=== PATIENT | female | born 2000 | race Hispanic/Latino ===

== ENCOUNTER 2018-02-05 16:18 | Inpatient (IN) | payer OTHER ==
[2018-02-05] MEDS ORDERED: MEPERIDINE HCL 25 MG/0.5 ML IV PRN (16:45)
[2018-02-05] MEDS ORDERED: Ringers Lactate 1,000 ML IV PRN (16:45)
[2018-02-05] MEDS ORDERED: BUTORPHANOL 1 MG/ML INJ IV PRN (16:45)
[2018-02-05] MEDS ORDERED: METHYLERGONOVINE 0.2MG/ML AMP IM PRN (16:45)
[2018-02-05] MEDS ORDERED: PROMETHAZINE 25 MG/ML VIAL IM PRN ×2 (16:45)
[2018-02-05] MEDS ORDERED: CARBOPROST TROME 250 MCG/ML IM PRN (16:45)
[2018-02-05] MEDS ORDERED: Ringers Lactate 1,000 ML IV SCH (17:00)
[2018-02-05] MEDS ORDERED: OXYTOCIN/LR 20 UNIT/1,000 ML BAG IV SCH (17:00)
[2018-02-05 17:05] LABS: RPR Titer ND
[2018-02-05 17:08] LABS: Urine Appearance CLOUDY; Urine Bilirubin NEGATIVE (NEG); Urine Blood NEGATIVE (NEG); Urine Color YELLOW; Urine Glucose TRACE (NEG); Urine Protein 1+ (NEG); Urine Specific Gravity >=1.030 (1.005-1.030); Urine Urobilinogen 0.2 mg/dL (0.2-1.0)
[2018-02-05 17:10] LABS: Urine Microscopic Reflex ORDER UMIC
[2018-02-05 17:17] LABS: Absolute Monocytes 0.8 K/uL (0.1-1.3); Absolute Neutrophil 7.9 K/uL (1.8-8.0); Basophils % 0.2 % (0-1.3); Eosinophils % 0.5 % (0-4.4); Hematocrit 33.4 % (36.0-45.0); Lymphocytes % 18.4 % (15.3-44.8); MCH 28.2 pg (27.0-35.0); MCV 81.9 fL (80-100); MPV 8.9 fL (7.6-11.3); RBC Red Blood Cell Count 4.08 M/uL (3.86-4.86)
[2018-02-05 17:20] VITALS: BMI 34.3
[2018-02-05 17:24] LABS: Calcium Oxalate Crystals- Ur FEW (NONE SEEN); Urine Bacteria <20 /HPF (<20); Urine Culture Reflex Order REFLEXED; Urine Mucus 1+ /HPF (NONE SEEN); Urine RBC <5 /HPF (NONE SEEN)
[2018-02-05] MEDS ORDERED: miSOPROStol 100 MCG TAB ONE (18:23)
[2018-02-05] MEDS ORDERED: miSOPROStol 100 MCG TAB VAG SCH (18:30)
[2018-02-05] MEDS ORDERED: ZOLPIDEM TARTRATE 10 MG TABLET PO ONE (21:00)
--- NOTE | 2018-02-05 23:07 | PREOPHP ---
Date of Admission: 02/05/2018 A 17-year-old primigravida, 39 weeks 4 days, wants induction. Pros and cons of Cytotec thoroughly di scussed including hyperstimulation. The patient is 1 possibly 1.5 cm vertex, -1 station, 50% effaced . Cervix soft. Baby looks excellent on the monitor. She is Rh positive, immune to Rubella. Negati ve beta-strep screen. Cytotec 25 mcg fragment placed high into the vagina behind the posterior lip o f the cervix. We will apply another Cytotec in 6 hours, and then if needed, the third one, then wait 5 hours, and begin oxytocin. If rupture of membranes occurs, we will stop with Cytotec and start ox ytocin after a reasonable interval. Full labor and delivery talk given to the patient and significan t other. CHARLEY/LUISITO Voice ID: [id number]
[2018-02-05 23:43] LABS: RPR (Rapid Plasma Reagin) NON-REACT (NON-REACT)
--- NOTE | 2018-02-06 11:51 | PN ---
Subjective: Renea Sherwood had a third Cytotec dose at 6:30 a.m. this morning. The patient states at around 4 a.m. she began notice significant uterine contractions. The patient is now 1.5 cm, 50-60 % effaced. Cervix very soft and baby most importantly has descended well and the pelvis is a -1 stat ion. Rupture of membranes, clear fluid. FHTs normal, reactive. Anticipate more rapid progress. If she is not in good labor by lunchtime, we will start oxytocin, but at this point the patient is renetta ng good progress just with the Cytotec. Full labor talk given again. CHARLEY/LUISITO Voice ID: [id number] Report ID: [id number]
--- NOTE | 2018-02-06 12:06 | PN ---
The patient has now 4 milliunits of Pitocin, sabrina regularly. She is 2 cm, 70% effaced, vertex , still at -1 station. Baby looks good. She has had 1 dose of Stadol. Encouraged to get in the [facility] saida chair, change positions. We will check her again in an hour and see what kind of progress we ar e making and we will continue to increase the Pitocin. CHARLEY/LUISITO Voice ID: [id number] Report ID: [id number]
[2018-02-06] MEDS ORDERED: FENTANYL CITR 100 MCG/2 ML ONE (15:00)
[2018-02-06] MEDS ORDERED: ROPIVACAINE HCL 100 ML IV ONE (15:01)
[2018-02-06] MEDS ORDERED: ROPIVACAINE HCL 0 ML ONE (15:01)
[2018-02-06] MEDS ORDERED: METHYLERGONOVINE 0.2MG/ML AMP IM ONE (19:04)
[2018-02-06] MEDS ORDERED: CARBOPROST TROME 250 MCG/ML IM ONE (19:04)
[2018-02-06] MEDS ORDERED: ACETAMINOPHEN 500 MG TAB PO PRN (21:07)
[2018-02-06] MEDS ORDERED: DOCUSATE NA/SENNA CONC 1 TAB PO PRN (21:07)
[2018-02-06] MEDS ORDERED: Oxycodone HCl/Acetaminophen 1 TAB TAB PO PRN ×2 (21:07)
[2018-02-06] MEDS ORDERED: DIPHENHYDRAMINE 25 MG TAB/CAP PO PRN (21:07)
[2018-02-06] MEDS ORDERED: BISACODYL 10 MG RECTAL SUPP RECT PRN (21:07)
[2018-02-06] MEDS ORDERED: OXYTOCIN/LR 20 UNIT/1,000 ML BAG IV SCH (22:00)
--- NOTE | 2018-02-06 23:00 | PN ---
Subjective: The patient is completely dilated; +1, +2 station. She is going to begin pushing at thi s point. We cut the epidural maintenance dose from 8 to 6. Anticipate that she continues to push we ll as she is doing at this point. We should deliver within the next half hour or so. CHARLEY/LUISITO Voice ID: [id number] Report ID: [id number]
[2018-02-06] MEDS: IBUPROFEN 200 MG TAB PO PRN (23:30)
--- NOTE | 2018-02-07 03:07 | OP ---
Surgeon: Rafy Gutierrez MD Indication And Procedure: A 17-year-old, primigravida, 39 weeks 4 days, had Cytotec inserted 3 times starting yesterday afternoon. It worked very well. This morning, she was 1.5 cm, 60% effaced, vert ex very low at -1 station, rupture of membranes, clear fluid. The patient went to a more active labo r pattern. Pitocin was eventually started and increased during the day. The patient initially recei thanh Stadol IV, then epidural anesthesia at approximately 4 cm. Went to complete after achieving 5 cm , second stage of approximately 45 minutes. Spontaneous vaginal delivery of a 7-pound female, Apgars 9 and 9, small first-degree laceration on the right side of the introitus. Two udcmhx-xh-hcwuv stit ches with 2-0 chromic. Schultze delivery of the placenta, which inspected and noted to be intact and normal. Less than 300 cc blood loss. Nuchal cord x2, very loosely. The patient is Rh positive, im mune to Rubella. Negative beta-strep screen. Final Diagnoses: Term intrauterine at 39 weeks 4 days, Cytotec followed by Pitocin inducti on, vaginal delivery, epidural anesthesia, nuchal cord x2. CHARLEY/LUISITO Voice ID: [id number] Report ID: [id number]
--- NOTE | 2018-02-07 11:49 | DS ---
Hospital Course: A 17-year-old, primigravida, 39 weeks 4 days, had Cytotec inserted 3 times, went in to a more active labor. Later, Pitocin augmentation was added. First stage of labor. The patient r eceived Stadol at approximately epidural anesthesia, which gave good effect during remaind er of labor and delivery. Second stage of about 45 minutes. Spontaneous vaginal delivery of a 7-kvng nd female, Apgars 9 and 9. Very small first-degree laceration, more of a mucosal tear on the right s nawaf of the introitus, 2 stitches 2-0 chromic under local infiltration. Schultze delivery of the plac enta, which was inspected and noted to be intact and normal. Less than 300 cc blood loss. Baby is n oted to have a nuchal cord x2 very loosely. Rh positive. Immune to Rubella. Negative beta strep sc reen. afebrile, ambulating and voiding. No post epidural problems. Will be dismissed ei ther later today or tomorrow morning to report back to my office in 6 weeks for followup, to report a ny temperature elevation of 100 degrees or greater, severe pain, heavy bleeding, or any other type of abnormalities. Dismissed with tramadol, although she knows to take Motrin instead. No p ost epidural problems. Final Diagnoses: Term intrauterine 39 weeks and 5 days at the time of delivery, Cytotec in duction, nuchal cord x2, epidural anesthesia. CHARLEY/LUISITO Voice ID: [id number] Report ID: [id number]
[2018-02-07] MEDS: IBUPROFEN 200 MG TAB PO PRN (14:26)
[2018-02-08] MEDS ORDERED: MAGNESIUM HYDROXIDE 8% 30 ML PO ONE (07:06)
--- NOTE | 2018-02-08 07:35 | PN ---
We went over dismissal instructions again today. The patient is constipated. We will give her 2 oun dion of milk of magnesia this morning. Constipation lecture given. She is to see me in 6 weeks for alexa ac. Knows that if she has any problems, however, to come back sooner, fever, severe pain, heavy bleeding, or any other type of abnormalities. She has had her Tdap immunization during the pregnanc y. Full discussion about dismissal options and instructions again given. CHARLEY/LUISITO Voice ID: [id number] Report ID: [id number]
[2018-02-08 07:36] VITALS: BP 125/73; TEMP 98.2
[2018-02-09 04:06] LABS: HBsAG Nonreactive (Nonreactive)
== END 2018-02-08 08:25 | disposition home or self-care (01) | DRG 774 ==
LOC: 2ND-WC 16:18
PROVIDERS: ADMIT Specialist; ATTEND Specialist
PROC: 3E0P7VZ Introduction of Hormone into Female Reproductive, Via Natural or Artificial Opening (ICD-10-PCS; 2018-02-05)
PROC: 10E0XZZ Delivery of Products of Conception, External Approach (ICD-10-PCS; principal; 2018-02-06)
PROC: 0HQ9XZZ Repair Perineum Skin, External Approach (ICD-10-PCS; 2018-02-06)
PROC: 10907ZC Drainage of Amniotic Fluid, Therapeutic from Products of Conception, Via Natural or Artificial Opening (ICD-10-PCS; 2018-02-06)
DX: O70.0 First degree perineal laceration during delivery (principal); O90.89 Other complications of the puerperium, not elsewhere classified; K59.00 Constipation, unspecified; O69.81X0 Labor and delivery complicated by cord around neck, without compression, not applicable or unspecified; Z3A.39 39 weeks gestation of pregnancy; Z37.0 Single live birth
CPT/HCPCS: 36415; 81003; 81015; 85025; 86592; 86901; 87077; 87086; 87088; 87186; 87340; J0595; J2210; J2550; J2590; J2795; J3010

== ENCOUNTER 2020-02-03 08:46 | Emergency (ER) | payer OTHER ==
--- OUTSIDE RECORDS SUMMARY | 2020-02-03 09:37 | XMS REPORT | Continuity of Care Document ---
:2000 Author Organization [facility] t Address [address] [place] [address] [address]. [address] [place] [address] Care Team Providers Name Role Phone Unavailable Unavailable Unavailable Problems This patient has no known problems. Allergies, Adverse Reactions, Alerts This patient has no known allergies or adverse reactions. Medications This patient has no known medications. Procedures This patient has no known procedures. Results This patient has no known results.
--- NOTE | 2020-02-03 09:41 | EDPHYS ---
Physician Documentation [facility] Name: Renea Sherwood Age: 19 yrs Sex: Female : 2000 Arrival Date: 02/03/2020 Time: 09:03 Bed 19 Private MD: ED Physician Solo Ponce HPI: 02/02 09:37 This 19 yrs old Female presents to ER via Ambulatory with complaints of erum POSSIBLE STREP THROAT. 09:37 The patient presents with sore throat. The patient describes throat pain as constant, erum dry, raw, scratchy. Onset: The symptoms/episode began/occurred 2 day(s) ago. Severity of symptoms: At their worst the symptoms were mild, in the emergency department the symptoms are unchanged. Modifying factors: The symptoms are alleviated by fluids, the symptoms are aggravated by foods, swallowing, Patient's oral intake status: good. Associated signs and symptoms: Pertinent positives: fever. The patient has not experienced similar symptoms in the past. Historical: - Allergies: :22 No Known Allergies; ss - Home Meds: : None [Active]; ss - PMHx: : None; ss - PSHx: 09:22 None; ss - Immunization history:: Adult Immunizations up to date. - Social history:: Smoking status: Patient denies any tobacco usage or history of. - Family history:: not pertinent. ROS: 09:37 Constitutional: Negative for fever, chills, and weight loss, Eyes: Negative for injury, erum pain, redness, and discharge, Neck: Negative for injury, pain, and swelling, Cardiovascular: Negative for chest pain, palpitations, and edema, Respiratory: Negative for shortness of breath, cough, wheezing, and pleuritic chest pain, Abdomen/GI: Negative for abdominal pain, nausea, vomiting, diarrhea, and constipation, Back: Negative for injury and pain, : Negative for injury, bleeding, discharge, and swelling, MS/Extremity: Negative for injury and deformity, Skin: Negative for injury, rash, and discoloration, Neuro: Negative for headache, weakness, numbness, tingling, and seizure, Psych: Negative for depression, anxiety, suicide ideation, homicidal ideation, and hallucinations, Allergy/Immunology: Negative for hives, rash, and allergies, Endocrine: Negative for neck swelling, polydipsia, polyuria, polyphagia, and marked weight changes, Hematologic/Lymphatic: Negative for swollen nodes, abnormal bleeding, and unusual bruising. 09:37 ENT: Positive for sore throat. Exam: 09:37 Constitutional: This is a well developed, well nourished patient who is awake, alert, erum and in no acute distress. Head/Face: Normocephalic, atraumatic. Eyes: Pupils equal round and reactive to light, extra-ocular motions intact. Lids and lashes normal. Conjunctiva and sclera are non-icteric and not injected. Cornea within normal limits. Periorbital areas with no swelling, redness, or edema. Neck: Trachea midline, no thyromegaly or masses palpated, and no cervical lymphadenopathy. Supple, full range of motion without nuchal rigidity, or vertebral point tenderness. No Meningismus. Chest/axilla: Normal chest wall appearance and motion. Nontender with no deformity. No lesions are appreciated. Cardiovascular: Regular rate and rhythm with a normal S1 and S2. No gallops, murmurs, or rubs. Normal PMI, no JVD. No pulse deficits. Respiratory: Lungs have equal breath sounds bilaterally, clear to auscultation and percussion. No rales, rhonchi or wheezes noted. No increased work of breathing, no retractions or nasal flaring. Abdomen/GI: Soft, non-tender, with normal bowel sounds. No distension or tympany. No guarding or rebound. No evidence of tenderness throughout. Back: No spinal tenderness. No costovertebral tenderness. Full range of motion. Skin: Warm, dry with normal turgor. Normal color with no rashes, no lesions, and no evidence of cellulitis. MS/ Extremity: Pulses equal, no cyanosis. Neurovascular intact. Full, normal range of motion. Neuro: Awake and alert, GCS 15, oriented to person, place, time, and situation. Cranial nerves II-XII grossly intact. Motor strength 5/5 in all extremities. Sensory grossly intact. Cerebellar exam normal. Normal gait. Psych: Awake, alert, with orientation to person, place and time. Behavior, mood, and affect are within normal limits. 09:37 ENT: Posterior pharynx: Tonsils: are normal in appearance, with erythema, Uvula: normal, midline, swelling, is not appreciated, that is mild, erythema, that is mild, exudate, is not appreciated, peritonsillar mass, is not appreciated, pooling of secretions, is not appreciated. Vital Signs: 09:22 BP 114 / 74; Pulse 105; Resp 16; Temp 97.1(TE); Pulse Ox 99% on R/A; Weight 70.31 kg; ss Height 5 ft. 3 in. (160.02 cm); Pain 6/10; 09:22 Body Mass Index 27.46 (70.31 kg, 160.02 cm) ss MDM: 09:26 Patient medically screened. [facility] 09:39 Data reviewed: vital signs, nurses notes. [facility] 09:41 Differential diagnosis: Allergic rhinitis, influenza, laryngitis, pharyngitis, erum tonsillitis, upper respiratory infection, uvulitis. Data interpreted: steam box hand: rate is 105 beats/min, rhythm is regular, Pulse oximetry: on room air is 99 %. Counseling: I had a detailed discussion with the patient and/or guardian regarding: the historical points, exam findings, and any diagnostic results supporting the discharge/admit diagnosis, the need for outpatient follow up, for definitive care, a family practitioner. 09:42 ED course: sore throat, exposure, sub fevers, has 15 month old child. [facility] Administered Medications: No medications were administered Disposition: 02/03/20 09:40 Discharged to Home. Impression: Acute pharyngitis. - Condition is Stable. - Discharge Instructions: Pharyngitis, Pharyngitis, Zocw-kh-Auox, Sore Throat, [id number]-[id number]. - Prescriptions for Amoxicillin 875 mg Oral Tablet - take 1 tablet by ORAL route every 12 hours for 10 days; 20 tablet. Denice- D 12 Hour 60-120 mg Oral Tablet Sustained Release 12 hr - take 1 tablet by ORAL route every 12 hours As needed; 20 tablet. - Medication Reconciliation Form, Thank You Letter, Antibiotic Education, Prescription Opioid Use form. - Work release form (02/03/20 10:17). ss - Follow up: Private Physician; When: 2 - 3 days; Reason: Recheck today's complaints, Continuance of care, Re-evaluation by your physician. - Problem is new. - Symptoms have improved. Signatures: Solo Ponce MD MD cha Smirch, Shelby, RN RN ss Corrections: (The following items were deleted from the chart) 10:00 09:40 02/03/2020 09:40 Discharged to Home. Impression: Acute pharyngitis. Condition is ss Stable. Forms are Medication Reconciliation Form, Thank You Letter, Antibiotic Education, Prescription Opioid Use. Follow up: Private Physician; When: 2 - 3 days; Reason: Recheck today's complaints, Continuance of care, Re-evaluation by your physician. Problem is new. Symptoms have improved. erum
--- NOTE | 2020-02-03 09:41 | ER ---
Nurse's Notes [facility] Name: Renea Sherwood Age: 19 yrs Sex: Female : 2000 Arrival Date: 02/03/2020 Time: 09:03 Bed 19 Private MD: Diagnosis: Acute pharyngitis Presentation: 02/02 09:20 Chief complaint: Patient states: "We live with somebody that tested positive for strep ss throat and my throat is killing me." Sore throat began 2 days ago. Denies fever, SOB and/or cough. Coronavirus screen: Patient denies a cough. Patient denies shortness of breath or difficulty breathing. Patient denies measured and/or subjective temperature greater than 100.4F prior to today's visit. Patient denies travel on a cruise ship or to a country the [facility] currently lists as an affected area. Patient denies contact with known and/or suspected case of COVID-19. Proceed with normal triage. Ebola Screen: Patient denies exposure to infectious person. Patient denies travel to an Ebola-affected area in the 21 days before illness onset. Initial Sepsis Screen: Does the patient meet any 2 criteria? No. Patient's initial sepsis screen is negative. Does the patient have a suspected source of infection? No. Patient's initial sepsis screen is negative. Risk Assessment: Do you want to hurt yourself or someone else? Patient reports no desire to harm self or others. Onset of symptoms was February 01, 2020. 09:20 Method Of Arrival: Ambulatory ss 09:20 Acuity: MOSES 4 ss Historical: - Allergies: 09:22 No Known Allergies; ss - Home Meds: 09:22 None [Active]; ss - PMHx: 09:22 None; ss - PSHx: 09:22 None; ss - Immunization history:: Adult Immunizations up to date. - Social history:: Smoking status: Patient denies any tobacco usage or history of. - Family history:: not pertinent. Screenin:00 Abuse screen: Denies threats or abuse. Denies injuries from another. Nutritional ss screening: No deficits noted. Tuberculosis screening: Never had TB. Fall Risk None identified. Assessment: 10:02 General: Appears in no apparent distress. comfortable, Behavior is calm, cooperative, ss Reports fatigue for 12-24 hours, Denies fever, feeling ill, chills. Pain: Complains of pain in throat Pain currently is 6 out of 10 on a pain scale. Quality of pain is described as sore. Neuro: Level of Consciousness is awake, alert, obeys commands, Oriented to person, place, time, situation. Cardiovascular: Capillary refill < 3 seconds is brisk in bilateral fingers. Respiratory: Airway is patent Respiratory effort is even, unlabored, Respiratory pattern is regular, symmetrical. GI: Patient currently denies diarrhea, nausea, vomiting. EENT: Nares are clear Oral mucosa is moist. Throat is clear. Derm: Skin is intact, is healthy with good turgor, Skin is dry, Skin is pink, warm \\T\\ dry. normal. Musculoskeletal: Circulation, motion, and sensation intact. Range of motion: intact in all extremities, Swelling absent. Vital Signs: 09:22 BP 114 / 74; Pulse 105; Resp 16; Temp 97.1(TE); Pulse Ox 99% on R/A; Weight 70.31 kg; Height 5 ft. 3 in. (160.02 cm); Pain 6/10; 09:22 Body Mass Index 27.46 (70.31 kg, 160.02 cm) ED Course: 09:03 Patient arrived in ED. fj1 09:14 Solo Ponce MD is Attending Physician. [facility] 09:22 Triage completed. 09:22 Arm band placed on right wrist. 09:59 Delmis Spain, RN is Primary Nurse. 10:00 Patient has correct armband on for positive identification. Bed in low position. Call ss light in reach. Side rails up X 1. 10:00 No provider procedures requiring assistance completed. Patient did not have IV access ss during this emergency room visit. Administered Medications: No medications were administered Outcome: 09:40 Discharge ordered by . [facility] 10:00 Discharged to home ambulatory. 10:00 Condition: good 10:00 Discharge instructions given to patient, Instructed on discharge instructions, follow up and referral plans. medication usage, Demonstrated understanding of instructions, follow-up care, medications, Prescriptions given X 2. 10:00 Patient left the ED. Signatures: Solo Ponce MD MD cha Smirch, Shelby, RN RN Rubin Dennis fj1
[2020-02-03 10:08] VITALS: BP 114/74; TEMP 97.1; O2SAT 99
== END 2020-02-03 10:00 | disposition home or self-care (01) ==
LOC: ER 08:46
DX: J02.9 Acute pharyngitis, unspecified (principal)
CPT/HCPCS: 99282

== ENCOUNTER 2020-03-20 09:51 | Emergency (ER) | payer SELFPAY ==
--- OUTSIDE RECORDS SUMMARY | 2020-03-20 09:54 | XMS REPORT | Continuity of Care Document ---
:2000 Author Organization [facility] t Address [address] [place] [address] [address]. [address] [place] [address] Care Team Providers Name Role Phone Unavailable Unavailable Unavailable Problems This patient has no known problems. Allergies, Adverse Reactions, Alerts This patient has no known allergies or adverse reactions. Medications This patient has no known medications. Procedures This patient has no known procedures. Results This patient has no known results.
[2020-03-20 10:39] LABS: Urine Blood 2+ (NEG); Urine Glucose NEGATIVE (NEG); Urine Protein 3+ (NEG); Urine pH 7.5 (5.0-7.0)
[2020-03-20] MEDS ORDERED: MORPHINE 4 MG/ML SYR ONE (10:39)
[2020-03-20] MEDS ORDERED: ONDANSETRON 4 MG/2 ML VIAL ONE (10:39)
[2020-03-20] MEDS ORDERED: CEFTRIAXONE/SWI 1gm 1 GM/10 ML SYR ONE (10:40)
[2020-03-20] MEDS ORDERED: NA CHLORIDE 0.9% 1,000 ML ONE (10:40)
[2020-03-20 10:43] LABS: Urine Bacteria >50 /HPF (<20); Urine Culture Reflex Order REFLEXED
[2020-03-20 11:03] LABS: Absolute Lymphocytes (CBC) 1.6 K/uL (0.7-4.9); Basophils % 0.3 % (0-1.3); Hematocrit 38.8 % (36.0-45.0); Lymphocytes % 8.8 % (15.3-44.8); MPV 7.8 fL (7.6-11.3)
[2020-03-20 11:11] LABS: ALT/SGPT 16 U/L (12-78); AST/SGOT 8 U/L (15-37); Albumin 3.8 g/dL (3.4-5.0); Alkaline Phosphatase 79 U/L (45-117); BUN Blood Urea Nitrogen 9 mg/dL (7-18); Bicarbonate 27 mmol/L (21-32); Bilirubin Direct 0.1 mg/dL (0-0.2); Bilirubin Total 0.4 mg/dL (0.2-1.0); Glucose Level 106 mg/dL (74-106); Lipase 55 U/L (73-393); Potassium 3.7 mmol/L (3.5-5.1); Protein, Total 7.7 g/dL (6.4-8.2); Sodium Level 139 mmol/L (136-145)
--- NOTE | 2020-03-20 11:27 | RAD REPORT ---
EXAM DESCRIPTION: CT - Abdomen Pelvis W Contrast - 03/20/2020 10:53 am CLINICAL HISTORY: FLANK PAIN, right-side COMPARISON: No comparisons TECHNIQUE: Biphasic, helical CT imaging of the abdomen and pelvis was performed following 100 ml non -ionic IV contrast. No oral contrast administered. All CT scans are performed using dose optimization technique as appropriate and may include automated exposure control or mA/KV adjustment according to patient size. FINDINGS: No suspicious findings in the lung bases. The liver, spleen, and pancreas show no suspicious findings. Gallbladder and biliary tree are also wi thout suspicious finding. No hydronephrosis present and no obstructing or nonobstructing calculi. No focal diminished enhanceme nt of the right kidney relative to the left. There is subtle edema of the right kidney when compared to the left. Slight thickening and enhancement of the right ureter present. No focal parenchymal mass . Bladder is fully contracted which precludes accurate assessment of cystitis. No bladder calculi pre sent. No adrenal abnormalities. IUD is in place in a normal-sized uterus. No ovarian or uterine suspicious finding. No dilated bowel loops or bowel wall thickening. Cecum is low-lying in the midline pelvis. Appendix i s normal. No free air, free fluid or inflammatory stranding. No mass or bulky lymphadenopathy. Patie nt has a minimal fat only umbilical hernia. No suspicious bony findings. IMPRESSION: Right ureteritis findings are evident. Urinary bladder is too contracted to allow all ac curate assessment of possible cystitis. Right kidney shows subtle edema relative to the left kidney but no focal parenchymal enhancement abno rmality to confirm pyelonephritis.
--- NOTE | 2020-03-20 11:36 | ER ---
Nurse's Notes [facility] Name: Renea Sherwood Age: 19 yrs Sex: Female : 2000 Arrival Date: 03/20/2020 Time: 09:54 Bed 15 Private MD: Diagnosis: Urinary tract infection, site not specified Presentation: 03/20 10:13 Chief complaint: Urinary urgency and frequency x 3 days, right flank and suprapubic hb pain 8/10 since last night. Coronavirus screen: At this time, the client does not indicate any symptoms associated with coronavirus-19. Ebola Screen: No symptoms or risks identified at this time. Initial Sepsis Screen: Does the patient meet any 2 criteria? Systolic BP < 90 mmHg. HR > 90 bpm. Yes Does the patient have a suspected source of infection? No. Patient's initial sepsis screen is negative. Risk Assessment: Do you want to hurt yourself or someone else? Patient reports no desire to harm self or others. Onset of symptoms was March 17, 2020. 10:13 Method Of Arrival: Ambulatory hb 10:13 Acuity: MOSES 2 hb Triage Assessment: 10:15 General: Appears in no apparent distress. uncomfortable, Behavior is calm, cooperative. hb Pain: Pain currently is 8 out of 10 on a pain scale. EENT: No signs and/or symptoms were reported regarding the EENT system. Neuro: Level of Consciousness is awake, alert, obeys commands, Oriented to person, place, time, situation. Cardiovascular: Capillary refill < 3 seconds Patient's skin is warm and dry. Respiratory: Airway is patent Respiratory effort is even, unlabored, Respiratory pattern is regular, symmetrical. GI: No signs and/or symptoms were reported involving the gastrointestinal system. : Reports pain in suprapubic area flank(s), urgency, urinary frequency. Derm: Skin is pink, warm \T\ dry. Musculoskeletal: No deficits noted. 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 - Social history:: Smoking status: Patient denies any tobacco usage or history of. Screenin:17 Abuse screen: Denies threats or abuse. Denies injuries from another. Nutritional hb screening: No deficits noted. Tuberculosis screening: No symptoms or risk factors identified. Fall Risk None identified. Assessment: 10:16 General: SEE TRIAGE ASSESSMENT. hb 11:36 Reassessment: No changes from previously documented assessment. Patient and/or family ll2 updated on plan of care and expected duration. Pain level reassessed. Patient is alert, oriented x 3, equal unlabored respirations, skin warm/dry/pink. Pain: Complains of pain in low back area Pain currently is 4 out of 10 on a pain scale. Vital Signs: 10:13 BP 78 / 58; Pulse 100; Resp 16; Temp 98.2; Pulse Ox 100% on R/A; Weight 68.04 kg; hb Height 5 ft. 3 in. (160.02 cm); Pain 8/10; 10:24 BP 97 / 65; ll1 10:24 Pulse 85; ll1 11:11 BP 103 / 65; Pulse 106; Resp 16; Temp 98.2; Pulse Ox 100% on R/A; ll2 10:13 Body Mass Index 26.57 (68.04 kg, 160.02 cm) hb ED Course: 09:54 Patient arrived in ED. mr 10:08 Mike Sampson, TELEGRAPH REPEATER INSTALLER is PHCP. pm1 10:08 Solo Ponce MD is Attending Physician. pm1 10:13 Angelina Fernandez, ISABELLE is Primary Nurse. ll1 10:15 Triage completed. hb 10:16 Arm band placed on. hb 10:17 Patient has correct armband on for positive identification. Bed in low position. Call light in reach. 10:53 CT Abd/Pelvis - IV Contrast Only In Process Unspecified. EDMS 11:11 Inserted saline lock: 20 gauge in right antecubital area, using aseptic technique. ll2 11:12 Initial lab(s) drawn, by me, sent to lab. ll2 11:53 No provider procedures requiring assistance completed. IV discontinued, intact, hb bleeding controlled, No redness/swelling at site. Administered Medications: 11:09 Drug: Zofran (Ondansetron) 4 mg Route: IVP; Site: right antecubital; ll2 11:37 Follow up: Response: No adverse reaction ll2 11:09 Drug: morphine 4 mg Route: IVP; Site: left antecubital; ll2 11:36 Follow up: Response: No adverse reaction; Pain is decreased; RASS: Alert and Calm (0) ll2 11:09 Drug: Rocephin 1 grams Route: IV; Rate: calculated rate; Site: left antecubital; ll2 11:36 Follow up: Response: No adverse reaction; IV Status: Completed infusion ll2 11:10 Drug: NS 0.9% 1000 ml Route: IV; Rate: 1000 ml; Site: right antecubital; ll2 11:49 Drug: Cipro 500 mg Route: PO; hb Outcome: 11:35 Discharge ordered by MD. pm1 11:53 Discharged to home ambulatory. hb 11:53 Condition: stable 11:53 Discharge instructions given to patient, Instructed on discharge instructions, follow up and referral plans. medication usage, Demonstrated understanding of instructions, follow-up care, medications, Prescriptions given X 3. 11:53 Patient left the ED. hb Addendum: 03/23/2020 08:30 Addendum: Culture Results: Positive urine culture. Bacteria is resistant to, has s s intermediate sensitivity, or is not tested against prescribed antibiotics. Report given to SHALONDA for further evaluation and then to insurance legal assistant for follow up with patient. Phone call Attempt #1 Called and spoke with patient who reports she does not have any symptoms of UTI at this time and is feeling much better. Instructed to prescribe Augmentin 875 PO BID x 7 days # 14 in symptomatic. Pt reports that she is still has yet to follow up with PCP, but still plans to do so and verbalizes understanding importance. Signatures: Dispatcher [employer] VITALYUT Sharmaine Mercado Delmis Perez, ISABELLE WALTON Mike Sampson, LISANDRA TELEGRAPH REPEATER INSTALLER pm1 Tawana Kathleen RN RN Melody Christianson RN RN ll2 Angelina Fernandez RN RN ll1
--- NOTE | 2020-03-20 11:36 | EDPHYS ---
Physician Documentation [facility] Name: Renea Sherwood Age: 19 yrs Sex: Female : 2000 Arrival Date: 03/20/2020 Time: 09:54 Bed 15 Private MD: ED Physician Solo Ponce HPI: 03/20 10:22 This 19 yrs old Female presents to ER via Ambulatory with complaints of pm1 Urinary Problem, Flank Pain. 10:22 The patient presents with pain that is acute. The symptoms are located in the right low pm1 back. Onset: The symptoms/episode began/occurred 2 day(s) ago. Associated signs and symptoms: Pertinent positives: dysuria, Pertinent negatives: chest pain, fever, nausea, numbness, tingling, weakness. Modifying factors: The patient symptoms are alleviated by nothing, the patient symptoms are aggravated by urination. Severity of symptoms: in the emergency department the symptoms are actually worse. The patient has experienced similar episodes in the past, a few times, but today's symptoms are worse, more painful. The patient has not recently seen a physician. 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 - Social history:: Smoking status: Patient denies any tobacco usage or history of. ROS: 10:22 Constitutional: Negative for fever, chills, and weight loss, Cardiovascular: Negative pm1 for chest pain, palpitations, and edema, Respiratory: Negative for shortness of breath, cough, wheezing, and pleuritic chest pain, Abdomen/GI: Negative for abdominal pain, nausea, vomiting, diarrhea, and constipation. 10:22 MS/Extremity: Negative for injury and deformity, Skin: Negative for injury, rash, and discoloration, Neuro: Negative for headache, weakness, numbness, tingling, and seizure. 10:22 Back: Positive for flank pain, on the right. 10:22 : Positive for burning with urination. Exam: 10:22 Constitutional: This is a well developed, well nourished patient who is awake, alert, pm1 and in no acute distress. Head/Face: Normocephalic, atraumatic. Neck: Trachea midline, no thyromegaly or masses palpated, and no cervical lymphadenopathy. Supple, full range of motion without nuchal rigidity, or vertebral point tenderness. No Meningismus. 10:22 Back: No spinal tenderness. No costovertebral tenderness. Full range of motion. Skin: Warm, dry with normal turgor. Normal color with no rashes, no lesions, and no evidence of cellulitis. MS/ Extremity: Pulses equal, no cyanosis. Neurovascular intact. Full, normal range of motion. 10:22 Cardiovascular: Exam negative for acute changes, Rate: normal, Rhythm: regular, Pulses: no pulse deficits are appreciated. 10:22 Respiratory: Exam negative for acute changes, respiratory distress, shortness of breath. 10:22 Abdomen/GI: Exam negative for acute changes, Inspection: abdomen appears normal, Palpation: abdomen is soft and non-tender, in all quadrants. 10:22 Neuro: Exam negative for acute changes, Orientation: is normal, Mentation: is normal, Motor: is normal. Vital Signs: 10:13 BP 78 / 58; Pulse 100; Resp 16; Temp 98.2; Pulse Ox 100% on R/A; Weight 68.04 kg; hb Height 5 ft. 3 in. (160.02 cm); Pain 8/10; 10:24 BP 97 / 65; ll1 10:24 Pulse 85; ll1 11:11 BP 103 / 65; Pulse 106; Resp 16; Temp 98.2; Pulse Ox 100% on R/A; ll2 10:13 Body Mass Index 26.57 (68.04 kg, 160.02 cm) hb MDM: 10:08 Patient medically screened. pm1 11:34 Data reviewed: vital signs. Data interpreted: Pulse oximetry: on room air is 100 %. pm1 Interpretation: normal. 11:35 Counseling: I had a detailed discussion with the patient and/or guardian regarding: the pm1 historical points, exam findings, and any diagnostic results supporting the discharge/admit diagnosis, lab results, radiology results, the need for outpatient follow up, to return to the emergency department if symptoms worsen or persist or if there are any questions or concerns that arise at home. 03/20 10:13 Order name: Basic Metabolic Panel; Complete Time: 11:14 pm1 03/20 10:13 Order name: CBC with Diff pm1 03/20 10:13 Order name: Hepatic Function; Complete Time: 11:14 pm1 03/20 10:13 Order name: Lipase; Complete Time: 11:14 pm1 03/20 10:13 Order name: Urine Microscopic Only; Complete Time: 11:07 pm1 03/20 10:22 Order name: Urine Culture pm1 03/20 10:13 Order name: CT Abd/Pelvis - IV Contrast Only; Complete Time: 11:33 pm1 03/20 10:22 Order name: Urine Culture EDPR 03/20 10:24 Order name: Urine Dipstick--Ancillary (enter results); Complete Time: 11: eb 03/20 10:24 Order name: Urine --Ancillary (enter results); Complete Time: 11: eb 03/20 10:13 Order name: IV Saline Lock; Complete Time: 10:43 pm1 03/20 10:13 Order name: Labs collected and sent; Complete Time: 10:43 pm1 03/20 10:13 Order name: Urine Dipstick-Ancillary (obtain specimen); Complete Time: 10:16 pm1 03/20 10:13 Order name: Urine Test (obtain specimen); Complete Time: 10:16 pm1 Administered Medications: 11:09 Drug: Zofran (Ondansetron) 4 mg Route: IVP; Site: right antecubital; ll2 11:37 Follow up: Response: No adverse reaction ll2 11:09 Drug: morphine 4 mg Route: IVP; Site: left antecubital; ll2 11:36 Follow up: Response: No adverse reaction; Pain is decreased; RASS: Alert and Calm (0) ll2 11:09 Drug: Rocephin 1 grams Route: IV; Rate: calculated rate; Site: left antecubital; ll2 11:36 Follow up: Response: No adverse reaction; IV Status: Completed infusion ll2 11:10 Drug: NS 0.9% 1000 ml Route: IV; Rate: 1000 ml; Site: right antecubital; ll2 11:49 Drug: Cipro 500 mg Route: PO; hb Disposition: 03/20/20 11:35 Discharged to Home. Impression: Urinary tract infection, site not specified. - Condition is Stable. - Discharge Instructions: Urinary Tract Infection, Adult. - Prescriptions for Cipro 500 mg Oral Tablet - take 1 tablet by ORAL route every 12 hours for 7 days; 14 tablet. Tylenol- Codeine #3 300-30 mg Oral Tablet - take 2 tablets by ORAL route every 6 hours As needed; 20 tablet. Zofran 4 mg Oral Tablet - take 1 tablet by ORAL route every 8 hours As needed; 20 tablet. - Medication Reconciliation Form, Thank You Letter, Antibiotic Education, Prescription Opioid Use, Work release form form. - Follow up: Emergency Department; When: As needed; Reason: Worsening of condition. Follow up: Private Physician; When: 2 - 3 days; Reason: Recheck today's complaints, Continuance of care, Re-evaluation by your physician. - Problem is new. - Symptoms have improved. Addendum: 03/22/2020 10:49 Co-signature as Attending Physician, Solo Ponce MD I agree with the assessment and c melendez plan of care. Signatures: Dispatcher [employer] EDPR Sloo Ponce MD MD cha Marinas, Patrick, MEDIA SUPERVISOR MEDIA SUPERVISOR pm1 Tawana Kathleen, RN RN Melody Christianson, RN RN ll2 Corrections: (The following items were deleted from the chart) 03/20 11:53 11:35 03/20/2020 11:35 Discharged to Home. Impression: Urinary tract infection, site hb not specified. Condition is Stable. Forms are Medication Reconciliation Form, Thank You Letter, Antibiotic Education, Prescription Opioid Use. Follow up: Emergency Department; When: As needed; Reason: Worsening of condition. Follow up: Private Physician; When: 2 - 3 days; Reason: Recheck today's complaints, Continuance of care, Re-evaluation by your physician. Problem is new. Symptoms have improved. pm1
[2020-03-20] MEDS ORDERED: CIPROFLOXACIN HCL 500 MG TAB ONE ×2 (11:53→11:55)
[2020-03-20 12:16] VITALS: TEMP 98.2; O2SAT 100
[2020-03-20 12:18] VITALS: BP 103/65
[2020-03-20 12:55] LABS: Blood Morphology Comment NOT SEEN (NOT SEEN); Platelet Estimate ADEQ; White Blood Cell Scan OK (OK)
== END 2020-03-20 11:53 | disposition home or self-care (01) ==
LOC: ER 09:51
DX: N39.0 Urinary tract infection, site not specified (principal)
CPT/HCPCS: 36415; 74177; 80048; 80076; 81003; 81015; 81025; 83690; 85025; 87077; 87086; 87088; 87186; 96365; 96375; 99284; J0696; J2405; J7030; Q9967

== ENCOUNTER 2020-08-18 08:48 | Emergency (ER) | payer BC, SELFPAY ==
[2020-08-18] MEDS ORDERED: NA CHLORIDE 0.9% 1,000 ML ONE (09:39)
[2020-08-18 09:47] LABS: Absolute Lymphocytes (CBC) 1.3 K/uL (0.7-4.9); Basophils % 0.2 % (0-1.3); Hematocrit 38.1 % (36.0-45.0); Lymphocytes % 8.9 % (15.3-44.8); MPV 7.8 fL (7.6-11.3); RBC Red Blood Cell Count 4.27 M/uL (3.86-4.86)
[2020-08-18 09:58] LABS: BUN Blood Urea Nitrogen 11 mg/dL (7-18); Bicarbonate 25 mmol/L (21-32); Glucose Level 106 mg/dL (74-106); Potassium 4.2 mmol/L (3.5-5.1); Sodium Level 140 mmol/L (136-145)
[2020-08-18] MEDS ORDERED: CEFTRIAXONE/SWI 1gm 1 GM/10 ML SYR ONE (10:18)
[2020-08-18 10:39] LABS: Urine Bacteria >50 /HPF (<20); Urine RBC <5 /HPF (NONE SEEN)
[2020-08-18 10:52] LABS: Urine Blood 1+ (NEG); Urine Glucose NEGATIVE (NEG); Urine Protein NEGATIVE (NEG); Urine Specific Gravity 1.025 (1.005-1.030)
[2020-08-18 10:59] LABS: SARS-COV-2 RT PCR NEGATIVE (NEGATIVE)
--- NOTE | 2020-08-18 11:59 | RAD REPORT ---
EXAM DESCRIPTION: CT - Abdomen Pelvis W Contrast - 08/18/2020 11:46 am CLINICAL HISTORY: ABD PAIN COMPARISON: Abdomen Pelvis W Contrast dated 03/20/2020 TECHNIQUE: Biphasic, helical CT imaging of the abdomen and pelvis was performed following 100 ml non -ionic IV contrast. No oral contrast. All CT scans are performed using dose optimization technique as appropriate and may include automated exposure control or mA/KV adjustment according to patient size. FINDINGS: No suspicious findings in the lung bases. The liver, spleen, and pancreas show no suspicious findings. Gallbladder and biliary tree are also wi thout suspicious finding. Heterogeneous, decreased enhancement is seen in the lower pole of the right kidney. This is a finding typical for pyelonephritis. No left-sided pyelonephritis confirmed. For the right kidney there is no abscess or complication of the pyelonephritis. No mass or other parenchymal abnormality of the kidne ys. No cystitis or acute bladder wall finding identified. No adrenal abnormalities. IUD is well posit ioned in a normal-sized uterus. No suspicious ovarian finding. Free fluid in the cul de sac is within physiologic levels. No dilated bowel loops or bowel wall thickening. Appendix is normal. No free air or pneumatosis. No o ther area of inflammatory stranding. No hernia, mass or bulky lymphadenopathy. No suspicious bony findings. IMPRESSION: Right-sided pyelonephritis. No abscess or other complicating factor.
--- NOTE | 2020-08-18 12:07 | ER ---
Nurse's Notes [facility] Name: Renea Sherwood Age: 20 yrs Sex: Female : 2000 Arrival Date: 08/18/2020 Time: 08:50 Bed 15 Private MD: Diagnosis: Acute tubulo-interstitial nephritis;Urinary tract infection, site not specified Presentation: 08/18 09:01 Chief complaint: Patient states: LOWER ABDOMINAL PAIN, FEVER (TMAX 102), LOSS OF bp APPETITE, BODY ACHES. Coronavirus screen: At this time, the client does not indicate any symptoms associated with coronavirus-19. Ebola Screen: No symptoms or risks identified at this time. Initial Sepsis Screen: Does the patient meet any 2 criteria? HR > 90 bpm. No. Patient's initial sepsis screen is negative. Does the patient have a suspected source of infection? No. Patient's initial sepsis screen is negative. Risk Assessment: Do you want to hurt yourself or someone else? Patient reports no desire to harm self or others. Onset of symptoms was August 17, 2020. 09:01 Method Of Arrival: Ambulatory bp 09:01 Acuity: MOSES 4 bp Triage Assessment: 09:03 General: Appears in no apparent distress. uncomfortable, Behavior is calm, cooperative, bp appropriate for age. Pain: Complains of pain in GENERALIZED BODY ACHES. EENT: No deficits noted. Neuro: No deficits noted. Cardiovascular: No deficits noted. Respiratory: No deficits noted. GI: Reports lower abdominal pain. : No signs and/or symptoms were reported regarding the genitourinary system. Derm: No deficits noted. Musculoskeletal: No deficits noted. Historical: - Allergies: 09:03 No Known Allergies; bp - Home Meds: 09:03 None [Active]; bp - PMHx: 09:03 None; bp - Immunization history:: Adult Immunizations up to date. - Social history:: Smoking status: Patient denies any tobacco usage or history of. Screenin:00 Abuse screen: Denies threats or abuse. Denies injuries from another. Nutritional sv screening: No deficits noted. Tuberculosis screening: No symptoms or risk factors identified. Fall Risk None identified. Assessment: 09:04 General: SEE TRIAGE NOTE. bp 10:05 Reassessment: No changes from previously documented assessment. Patient and/or family bp updated on plan of care and expected duration. Pain level reassessed. Patient is alert, oriented x 3, equal unlabored respirations, skin warm/dry/pink. 11:10 Reassessment: No changes from previously documented assessment. Patient and/or family bp updated on plan of care and expected duration. Pain level reassessed. Patient is alert, oriented x 3, equal unlabored respirations, skin warm/dry/pink. 12:22 Reassessment: PT D/C HOME AMBULATORY, DX WITH UTI. bp Vital Signs: 09:01 BP 94 / 45; Pulse 105; Resp 19; Temp 99.9; Pulse Ox 97% ; Weight 68.04 kg; Height 5 ft. bp 3 in. (160.02 cm); 10:00 BP 100 / 66; Pulse 114; Resp 17; Pulse Ox 100% ; bp 11:10 BP 108 / 67; Pulse 116; Resp 16; Pulse Ox 100% ; bp 12:22 BP 110 / 74; Pulse 90; Resp 17; Temp 98.9; Pulse Ox 99% ; bp 09:01 Body Mass Index 26.57 (68.04 kg, 160.02 cm) bp ED Course: 08:50 Patient arrived in ED. ag5 09:00 Arm band placed on. sv 09:00 Patient has correct armband on for positive identification. Bed in low position. Call sv light in reach. Door closed. Head of bed elevated. 09:01 Geraldo Jim, ISABELLE is Primary Nurse. bp 09:02 Alena Moraes FNP-C is PHCP. kb 09:02 Jackson Owen MD is Attending Physician. kb 09:03 Triage completed. bp 09:27 Urine Microscopic Only Sent. mh5 09:28 Pulse ox on. NIBP on. mh5 09:28 Urine collected: clean catch specimen, clear. mh5 09:30 Inserted saline lock: 20 gauge in right forearm, using aseptic technique. Blood bp collected. 11:46 CT Abd/Pelvis - IV Contrast Only In Process Unspecified. EDMS 12:22 No provider procedures requiring assistance completed. IV discontinued, intact, bp bleeding controlled, No redness/swelling at site. Pressure dressing applied. Patient maintains SpO2 saturation greater than 95% on room air. Administered Medications: 09:30 Drug: NS 0.9% 1000 ml Route: IV; Rate: 1000 ml; Site: right forearm; bp 12:28 Follow up: IV Status: Completed infusion; IV Intake: 1000ml bp 10:00 Drug: Rocephin 1 grams Route: IV; Rate: calculated rate; Site: right forearm; bp 12:31 Follow up: IV Status: Completed infusion; IV Intake: 50ml bp Intake: 12:28 IV: 1000ml; Total: 1000ml. bp 12:31 IV: 50ml; Total: 1050ml. bp Outcome: 12:07 Discharge ordered by . adithya 12:22 Discharged to home ambulatory. bp 12:22 Condition: stable 12:22 Discharge instructions given to patient, Instructed on discharge instructions, follow up and referral plans. medication usage, Demonstrated understanding of instructions, follow-up care, medications, Prescriptions given X 1. 12:31 Patient left the ED. bp Addendum: 08/21/2020 07:23 Addendum: Culture Results: Positive urine culture. No further action required. Bacteria e b sensitive to prescribed antibiotic. Signatures: Dispatcher [employer] EDMS Alena Moraes, MASTICATOR-C MASTICATOR-Elda Godinez, RN Trina Fay [facility] Geraldo Jim RN RN Julia Piper Ajare [facility]
--- NOTE | 2020-08-18 12:07 | EDPHYS ---
Physician Documentation [facility] Name: Renea Sherwood Age: 20 yrs Sex: Female : 2000 Arrival Date: 08/18/2020 Time: 08:50 Bed 15 Private MD: ED Physician Jackson Owen HPI: 08/18 09:29 This 20 yrs old Female presents to ER via Ambulatory with complaints of kb Abdominal Pain, Fever, Body Aches. 09:32 The patient or guardian reports flu symptoms, low-grade fever, myalgias, no appetite. kb Onset: The symptoms/episode began/occurred yesterday. Severity of symptoms: At their worst the symptoms were moderate, in the emergency department the symptoms are unchanged. Modifying factors: The symptoms are alleviated by nothing, the symptoms are aggravated by nothing. Associated signs and symptoms: Pertinent positives: fever, Pertinent negatives: chest pain, diarrhea, ear ache, nausea, rhinorrhea, sore throat, vomiting. The patient has not experienced similar symptoms in the past. The patient has not recently seen a physician. Pt reports she just feels bad. States she has had body aches and feels heavy, fatigue, malaise since yesterday. Woke up at 0100 with chills and fever of 102. States she has had some abd pain for a few days, urinary frequency and dark urine. . Historical: - Allergies: 09:03 No Known Allergies; bp - Home Meds: 09:03 None [Active]; bp - PMHx: 09:03 None; bp - Immunization history:: Adult Immunizations up to date. - Social history:: Smoking status: Patient denies any tobacco usage or history of. ROS: 09:31 Cardiovascular: Negative for chest pain, palpitations, and edema, Respiratory: Negative kb for shortness of breath, cough, wheezing, and pleuritic chest pain, Back: Negative for injury and pain, MS/Extremity: Negative for injury and deformity, Skin: Negative for injury, rash, and discoloration, Neuro: Negative for headache, weakness, numbness, tingling, and seizure. 09:31 Constitutional: Positive for body aches, fatigue, fever, malaise. 09:31 Abdomen/GI: Positive for abdominal pain, decreased appetite, Negative for nausea, vomiting, and diarrhea. 09:31 : Positive for urinary frequency. Exam: 09:32 Constitutional: This is a well developed, well nourished patient who is awake, alert, kb and in no acute distress. Head/Face: Normocephalic, atraumatic. Chest/axilla: Normal chest wall appearance and motion. Nontender with no deformity. No lesions are appreciated. Cardiovascular: Regular rate and rhythm with a normal S1 and S2. No gallops, murmurs, or rubs. Normal PMI, no JVD. No pulse deficits. Respiratory: Lungs have equal breath sounds bilaterally, clear to auscultation and percussion. No rales, rhonchi or wheezes noted. No increased work of breathing, no retractions or nasal flaring. Back: No spinal tenderness. No costovertebral tenderness. Full range of motion. Skin: Warm, dry with normal turgor. Normal color with no rashes, no lesions, and no evidence of cellulitis. MS/ Extremity: Pulses equal, no cyanosis. Neurovascular intact. Full, normal range of motion. Neuro: Awake and alert, GCS 15, oriented to person, place, time, and situation. Cranial nerves II-XII grossly intact. Motor strength 5/5 in all extremities. Sensory grossly intact. Cerebellar exam normal. Normal gait. 09:32 Abdomen/GI: Inspection: abdomen appears normal, Bowel sounds: normal, in all quadrants, Palpation: soft, in all quadrants, mild abdominal tenderness, in the right lower quadrant. Vital Signs: 09:01 BP 94 / 45; Pulse 105; Resp 19; Temp 99.9; Pulse Ox 97% ; Weight 68.04 kg; Height 5 ft. bp 3 in. (160.02 cm); 10:00 BP 100 / 66; Pulse 114; Resp 17; Pulse Ox 100% ; bp 11:10 BP 108 / 67; Pulse 116; Resp 16; Pulse Ox 100% ; bp 12:22 BP 110 / 74; Pulse 90; Resp 17; Temp 98.9; Pulse Ox 99% ; bp 09:01 Body Mass Index 26.57 (68.04 kg, 160.02 cm) bp MDM: 09:03 Patient medically screened. kb 09:29 Data reviewed: vital signs, nurses notes. Data interpreted: Pulse oximetry: on room air kb is 97 %. Interpretation: normal. 12:03 Counseling: I had a detailed discussion with the patient and/or guardian regarding: the kb historical points, exam findings, and any diagnostic results supporting the discharge/admit diagnosis, lab results, radiology results, the need for outpatient follow up, a family practitioner, to return to the emergency department if symptoms worsen or persist or if there are any questions or concerns that arise at home. 08/18 09:16 Order name: CBC with Diff; Complete Time: 09:59 kb 08/18 09:16 Order name: Basic Metabolic Panel; Complete Time: 09:59 kb 08/18 09:16 Order name: Urine Microscopic Only; Complete Time: 10:43 kb 08/18 09:59 Order name: Urine Dipstick--Ancillary (enter results) bd 08/18 09:59 Order name: Urine --Ancillary (enter results) bd 08/18 09:59 Order name: Urine Dipstick-Ancillary; Complete Time: 10:55 EDMS 08/18 09:59 Order name: Urine --Ancillary; Complete Time: 10:55 EDMS 08/18 10:41 Order name: Urine Culture EDNY 08/18 11:00 Order name: COVID-19/FLU A+B; Complete Time: 11:02 EDMS 08/18 11:05 Order name: CT Abd/Pelvis - IV Contrast Only; Complete Time: 12:03 kb 08/18 09:16 Order name: IV Start; Complete Time: 09:35 kb 08/18 09:16 Order name: Urine Test (obtain specimen); Complete Time: 09:27 kb 08/18 09:16 Order name: Urine Dipstick-Ancillary (obtain specimen); Complete Time: 09:27 kb Administered Medications: 09:30 Drug: NS 0.9% 1000 ml Route: IV; Rate: 1000 ml; Site: right forearm; bp 12:28 Follow up: IV Status: Completed infusion; IV Intake: 1000ml bp 10:00 Drug: Rocephin 1 grams Route: IV; Rate: calculated rate; Site: right forearm; bp 12:31 Follow up: IV Status: Completed infusion; IV Intake: 50ml bp Disposition: 17:31 Co-signature as Attending Physician, Jackson Owen MD I agree with the assessment and kdr plan of care. Disposition: 08/18/20 12:07 Discharged to Home. Impression: Acute tubulo-interstitial nephritis, Urinary tract infection, site not specified. - Condition is Stable. - Discharge Instructions: Pyelonephritis, Adult, Ogxj-sj-Ggpx, Urinary Tract Infection, Adult, Phsj-kl-Hbma. - Prescriptions for Augmentin 875- 125 mg Oral Tablet - take 1 tablet by ORAL route every 12 hours for 10 days; 20 tablet. - Medication Reconciliation Form, Thank You Letter, Antibiotic Education, Prescription Opioid Use, Work release form form. - Follow up: Emergency Department; When: As needed; Reason: Worsening of condition. Follow up: Private Physician; When: 2 - 3 days; Reason: Recheck today's complaints, Continuance of care, Re-evaluation by your physician. Signatures: Dispatcher [employer] [facility] Alena Moraes, WAREHOUSE SHIPPING ASSOCIATE-C [employer]AREHOUSE SHIPPING ASSOCIATE-Ckb Jackson Owen MD MD kdr Peltier, Brian, RN RN bp Corrections: (The following items were deleted from the chart) 10:14 09:17 CORONAVIRUS+MR.LAB.BRZ ordered. [facility] 12:31 12:07 08/18/2020 12:07 Discharged to Home. Impression: Acute tubulo-interstitial bp nephritis; Urinary tract infection, site not specified. Condition is Stable. Forms are Medication Reconciliation Form, Thank You Letter, Antibiotic Education, Prescription Opioid Use. Follow up: Emergency Department; When: As needed; Reason: Worsening of condition. Follow up: Private Physician; When: 2 - 3 days; Reason: Recheck today's complaints, Continuance of care, Re-evaluation by your physician. kb
[2020-08-18 12:39] VITALS: BP 110/74; TEMP 98.9; O2SAT 99
--- OUTSIDE RECORDS SUMMARY | 2020-08-18 14:15 | XMS REPORT | Continuity of Care Document ---
:2000 Author Organization [facility] t Address [address] [place] [address] [address] [place] [address] Care Team Providers Name Role Phone Unavailable Unavailable Unavailable Problems This patient has no known problems. Allergies, Adverse Reactions, Alerts This patient has no known allergies or adverse reactions. Medications This patient has no known medications. Procedures This patient has no known procedures. Results This patient has no known results.
== END 2020-08-18 12:31 | disposition home or self-care (01) ==
LOC: ER 08:48
DX: N10 Acute pyelonephritis (principal); N39.0 Urinary tract infection, site not specified; Z20.822 Contact with and (suspected) exposure to COVID-19
CPT/HCPCS: 87088; 85025; 87086; 80048; 36415; 81025; 0240U; 74177; Q9967; J0696; J7030; 81003; 81015; 87077; 87186; 96365; 96366; 99284

== ENCOUNTER 2023-05-19 23:05 | Emergency (ER) | payer BC ==
--- OUTSIDE RECORDS SUMMARY | 2023-05-19 23:09 | XMS REPORT | Continuity of Care Document ---
:2000 Author Organization [facility] t Address [address] [facility] [address] [place] [id number] Care Team Providers Name Role Phone PCP, PATIENT DOES NOT HAVE A Primary Care Physician Unavaila SUSAN Merino Attending Clinician Unavailable Susan Ross MD Attending Clinician Doctor Unassigned, [place] Attending Clinician Unavailable 2, Adc Lab Attending Clinician Unavailable Payers Payer Name Policy Type Policy Number Effective Date Expiration Date Soumya spain [facility] [id number] 2020 00:00:00 [facility] Problems Condition Condition Condition Status Onset Resolution Last Treating Co mments Source Name Details Category Date Date Treatment Clinician Date IUD check IUD check Disease Active Uni vers up up 1-09 ity of 00:00: [place] [address] Medical Branch Over Over Disease Active Univers weight weight 3-17 ity of 00:00: [place] [address] Medical Branch History of History of Disease Active Overview : Univers depression depression 3-17 Formattin ity of 00:00: g of this note Medical might be Branch different from the original. Stopped taking meds when she found out she was Allergies, Adverse Reactions, Alerts Allergy Allergy Status Severity Reaction(s) Onset Inactive Treating Comm ents Source Name Type Date Date Clinician ADHESIVE Drug Active Hives 2016-07 Univers Class 2-07 ity of 00:00: [place] [address] Medical Branch Adhesive Propensi Active Hives 2016-07 Univer s ty to 2-07 ity of adverse 00:00: [place] reaction 00 Medical s to Branch drug Social History Social Habit Start Date Stop Date Quantity Comments Source History SDOH [facility] Alcohol Frequency Medical Branch History SDOH [facility] Alcohol Std Drinks Medica l Branch History SDOH [facility] [place] Alcohol Binge Medical [facility] Exposure to Not sure [facility] SARS-CoV-2 (event) Medica l Branch Alcohol intake 2021-06-24 2021-06-24 0 /d [facility] 00:00:00 00:00:00 Medical Branch Alcohol Comment 2018-05-15 2018-05-15 social [facility] 00:00:00 00:00:00 Medical Branch Tobacco use and 2016-09-22 2016-09-22 Never used [facility] exposure 00:00:00 00:00:00 Medical Branch Sex Ass[birth year] [facility] 00:00:00 00:00:00 Medical Branch Smoking Status Start Date Stop Date Source Never smoker [facility] [place] [facility] [place] Medications Ordered Filled Start Stop Current Ordering Indication Dosage Frequency Signature Comments Components Source Medication Medication Date Date Medication? Clinician (SIG) Name Name levonorgest 2021- No [id number] 1{devic Univers reL 07-20 e} ity of (KYLEENA) 17:00: 15:56 [place] IUD 1 00 :00 Adjunct Writing Instructor Branch levonorgest 2021- No [id number] 1{devic 1 Device, Univers reL 07-20 e} Intrauteri ity of (KYLEENA) 17:00: 15:56 [place] 1 [place] :00 1 dose, On Adjunct Writing Instructor Wed Branch 07/20/21 at 1100, Routine levonorgest 2021- No [id number] 1{devic Univers reL 07-20 e} ity of (KYLEENA) 17:00: 15:56 [place] IUD 1 00 :00 Adjunct Writing Instructor Branch levonorgest 2021- No [id number] 1{devic 1 Device, Univers reL 07-20 e} Intrauteri ity of (KYLEENA) 17:00: 15:56 [place] 1 [place] :00 1 dose, On Adjunct Writing Instructor [facility] Branch 07/20/21 at 1100, Routine PNV 67-iron Yes [id number] 1{each} Take 1 Univers ps-folate 1-08 Each by ity of no.1-dha 00:00: mouth [place] (VITAFOL 00 daily. Medical ULTRA) 29 Branch mg iron- 1 mg-200 mg Cap PNV 67-iron Yes [id number] 1{each} Take 1 Univers ps-folate 1-08 Each by ity of no.1-dha 00:00: mouth [place] (VITAFOL 00 daily. Medical ULTRA) 29 Branch mg iron- 1 mg-200 mg Cap proMETHazin Yes [id number] 25mg Take 1 Univers e 25 mg 1-02 tablet by ity of tablet 00:00: mouth [place] 00 every 6 Medical (six) Branch hours as needed for Nausea and Vomiting (N/V). proMETHazin Yes [id number] 25mg Take 1 Univers e 25 mg 1-02 tablet by ity of tablet 00:00: mouth [place] 00 every 6 Medical (six) Branch hours as needed for Nausea and Vomiting (N/V). SERTraline Yes 50mg Take 50 mg U nivers (ZOLOFT) 50 6-12 by mouth ity of mg tablet 16:45: daily. [address] SERTraline Yes 50mg Take 50 mg U nivers (ZOLOFT) 50 6-12 by mouth ity of mg tablet 16:45: daily. [address] Vital Signs Vital Name Observation Time Observation Value Comments Source Systolic blood 2021-07-20 15:38:00 105 mm[Hg] [facility] sity of pressure [facility] Diastolic blood 2021-07-20 15:38:00 69 mm[Hg] [facility] Heart rate 2021-07-20 15:38:00 80 /min [facility] Body temperature 2021-07-20 15:38:00 37.06 Samantha [facility] Respiratory rate 2021-07-20 15:38:00 18 /min [facility] Body height 2021-07-20 15:38:00 160 cm [facility] Body weight 2021-07-20 15:38:00 74.39 kg [facility] BMI 2021-07-20 15:38:00 29.05 kg/m2 [facility] Procedures Procedure Date / Time Performed Performing Clinician Sourc e POCT TEST 2021-07-20 00:00:00 Susan Ross [facility] Encounters Start End Encounter Admission Attending Care Care Encounter Source Date/Time Date/Time Type Type Clinicians Facility Department ID 2021-08-31 2021-08-31 Outpatient R ADUM, [facility] [id number] Univers 09:30:00 09:30:[address] [facility] 2021-07-20 2021-07-20 Outpatient R ADUM, [facility] [id number] Univers 09:00:00 10:00:[address] [facility] 2021-07-20 2021-07-20 Office Adum, [facility] [id number] Univers 09:00:00 09:30:00 Visit Susan DE LEÓN [id number] ity of [facility] [id number] [phone] Ga dical NAL [address] [facility] 2021-07-20 2021-07-20 Outpatient R ADUM, [facility] [id number] Univers 09:00:00 09:00:[address] [facility] 2021-07-20 2021-07-20 Orders Doctor KEISHA [id number] Univers 00:00:00 00:00:00 Only Unassigned, GLADIS [id number] ity of [place] [facility] [id number] Jamil as [phone] [address] 2021-06-27 2021-06-27 [place] Laborer 2, Adc Lab [facility] [id number] Univers 08:45:00 09:00:00 Visit AdSusan rosales [id number] ity of [facility] [id number] [phone] Me dical NAL [address] [facility] 2021-06-27 2021-06-27 Outpatient R [facility] [id number] Univers 08:45:00 08:45:00 [facility] 2021-06-27 2021-06-27 Outpatient R ADUM, [facility] [id number] Univers 08:45:00 08:45:00 [facility] 2021-06-24 2021-06-24 [facility] [id number] Univers 08:30:00 09:40:02 Visit [facility] DE LE[facility]N [id number] [id number] Honey ALBERT [phone] Ga dical [facility] [address] [facility] 2021-06-24 2021-06-24 Outpatient R AD, [facility] [id number] Univers 08:30:00 09:40:02 [facility] 2021-06-24 2021-06-24 Outpatient R ADUM, [facility] [id number] Univers 08:30:00 08:30:00 [facility] 2021-06-07 2021-06-07 [facility] [id number] Univers 09:30:00 09:30:00 [facility] 2020-07-07 2020-07-07 Outpatient R [facility] [id number] Univers 15:00:00 15:00:00 [facility] Results Test Description Test Time Test Comments Results Result Comments Source POCT TEST 2021-07-20 15:40:00 Test Item Value Reference Range Interpretation Comme nts POCT PREG (test code = 1605) Negative On board controls acceptable with C Line (test code = 3574) Yes POCT PREG LOT # (test code = 3575) POCT PREG TEST DATE (test code = 3576) Lab Interpretation (test code = 71947-7) [id number]:40[facility]00 Test Item Value Reference Range Interpretation Comments POCT PREG (test code = 1605) Negative On board controls acceptable with C Yes Line (test code = 3574) POCT PREG LOT # (test code = 3575) POCT PREG TEST DATE (test code = 3576) Lab Interpretation (test code = Normal 00190-4) [facility]
[2023-05-20] LABS: Absolute Lymphocytes (CBC) 2.9 K/uL (0.7-4.9); Hematocrit 43.1 % (36.0-45.0); Lymphocytes % 20.1 % (15.3-44.8); MCV 87.7 fL (80-100); MPV 7.7 fL (7.6-11.3); Platelets 389 thou/uL (152-406); RBC Red Blood Cell Count 4.92 M/uL (3.86-4.86)
[2023-05-20 00:01] LABS: Specific Gravity 1.009 (1.005-1.030)
[2023-05-20] MEDS ORDERED: NA CHLORIDE 0.9% 1,000 ML ONE (00:16)
[2023-05-20 00:21] LABS: Albumin 3.9 g/dL (3.4-5.0); Bilirubin Total 0.1 mg/dL (0.2-1.0); Potassium 3.8 mEq/L (3.5-5.1); Protein, Total 8.3 g/dL (6.4-8.2)
--- NOTE | 2023-05-20 01:39 | ER ---
Nurse's Notes [facility] Name: Renea Sherwood Age: 23 yrs Sex: Female : 2000 Arrival Date: 05/19/2023 Time: 23:05 Bed 15 Private MD: Diagnosis: Syncope Near;Alcohol use, unspecified;Other reactions to severe stress Presentation: 05/19 23:18 Chief complaint: Friend and/or Co-Worker states: We were at the bar when she started jb4 saying she felt hot, leaned back against the wall. Slumped over eyes rolled to the back of her head and she began to vomit. It took a few minutes for her to wake up, but when she did she was completely with it. Coronavirus screen: At this time, the client does not indicate any symptoms associated with coronavirus-19. Ebola Screen: No symptoms or risks identified at this time. Initial Sepsis Screen: Does the patient meet any 2 criteria? HR > 90 bpm. Yes Does the patient have a suspected source of infection? No. Patient's initial sepsis screen is negative. Risk Assessment: Do you want to hurt yourself or someone else? Patient reports no desire to harm self or others. Onset of symptoms was May 19, 2023. Transition of care: patient was not received from another setting of care. 23:18 Method Of Arrival: Ambulatory jb4 23:18 Acuity: MOSES 3 jb4 Historical: - Allergies: 23:25 No Known Allergies; jb4 - Home Meds: 23:25 None [Active]; jb4 - PMHx: 23:25 None; jb4 - PSHx: 23:25 None; jb4 - Immunization history:: Adult Immunizations unknown. - Social history:: Smoking status: Reported history of juuling and/or vaping. Screenin/12 00:00 [facility] ED Fall Risk Assessment (Adult) History of falling in the last 3 months, pf1 including since admission No falls in past 3 months (0 pts) Confusion or Disorientation No (0 pts) Intoxicated or Sedated No (0 pts) Impaired Gait No (0 pts) Mobility Assist Device Used No (0 pt) Altered Elimination No (0 pt) Score/Fall Risk Level 0 - 2 = Low Risk Oriented to surroundings, Maintained a safe environment, Educated pt \T\ family on fall prevention, incl call for assistance when getting out of bed, Assessed \T\ reinforced patient's understanding of fall precautions, Provided non-skid footwear, Hourly rounding (assess needs \T\ fall precautionary measures) done, Used ambulatory aids as needed (educated on \T\ assisted with), Used gait belt as appropriate. 00:00 Abuse screen: Denies threats or abuse. Nutritional screening: No deficits noted. pf1 Tuberculosis screening: No symptoms or risk factors identified. Assessment: 05/19 23:30 General: Appears in no apparent distress. comfortable, Behavior is calm, cooperative, jb4 appropriate for age. Pain: Denies pain. Neuro: Level of Consciousness is awake, alert, obeys commands, Oriented to person, place, time, situation. Cardiovascular: Patient's skin is warm and dry. Respiratory: Airway is patent Respiratory effort is even, unlabored, Respiratory pattern is regular, symmetrical. GI: No signs and/or symptoms were reported involving the gastrointestinal system. : No signs and/or symptoms were reported regarding the genitourinary system. EENT: No signs and/or symptoms were reported regarding the EENT system. Derm: Skin is intact, Skin is pink, warm \T\ dry. Musculoskeletal: Circulation, motion, and sensation intact. Range of motion: intact in all extremities. 05/20 00:20 Reassessment: Patient appears in no apparent distress at this time. Patient and/or jb4 family updated on plan of care and expected duration. Pain level reassessed. Patient is alert, oriented x 3, equal unlabored respirations, skin warm/dry/pink. 01:28 Reassessment: Patient appears in no apparent distress at this time. Patient and/or jb4 family updated on plan of care and expected duration. Pain level reassessed. Patient is alert, oriented x 3, equal unlabored respirations, skin warm/dry/pink. Vital Signs: 05/19 23:18 BP 95 / 71; Pulse 117; Resp 16; Temp 98.3(O); Pulse Ox 99% on R/A; Weight 76 kg (M); jb4 05/20 00:20 BP 101 / 66; Pulse 95; Resp 16; Pulse Ox 99% on R/A; jb4 01:28 BP 108 / 67; Pulse 80; Resp 16; Pulse Ox 99% on R/A; jb4 Leonora Coma Score: 05/19 23:25 Eye Response: spontaneous(4). Motor Response: obeys commands(6). Verbal Response: jb4 oriented(5). Total: 15. ED Course: 23:10 Patient arrived in ED. gm2 23:14 Palak Botello FNP-C [facility]. snw 23:14 Samuel Lake DO is Attending Physician. snw 23:25 Triage completed. jb4 23:25 Arm band placed on right wrist. jb4 23:25 Patient has correct armband on for positive identification. Bed in low position. Call pf1 light in reach. Side rails up X2. 23:50 Inserted saline lock: 18 gauge in right forearm, using aseptic technique. Blood pf1 collected. 1112 00:03 CT Head Brain wo Cont In Process Unspecified. EDMS 02:02 No provider procedures requiring assistance completed. pf1 02:04 IV discontinued, intact, bleeding controlled, No redness/swelling at site. Pressure pf1 dressing applied. 02:05 Provided Education on: prescription. pf1 Administered Medications: 00:06 Drug: NS 0.9% IV 1000 ml IV at 125 ml/hr continuous Route: IV; Rate: 125 ml/hr; Site: jb4 right forearm; 02:04 Follow up: Response: No adverse reaction; Marked relief of symptoms; IV Status: pf1 Completed infusion Medication: 02:05 VIS not applicable for this client. pf1 Outcome: 01:38 Discharge ordered by . snw 02:05 Discharged to home ambulatory, with friend, pf1 02:05 Condition: improved 02:05 Discharge instructions given to patient, Instructed on discharge instructions, follow up and referral plans. Demonstrated understanding of instructions, follow-up care, medications, Prescriptions given X 1, 02:06 Patient left the ED. pf1 Signatures: Dispatcher [employer] EDMS Palak Botello FNP-C FNP-Sonny Tompkins RN RN jb4 Roxi Aguero RN RN pf1 Evonne Jenkins gm2
--- NOTE | 2023-05-20 01:39 | EDPHYS ---
Physician Documentation [facility] Name: Renea Sherwood Age: 23 yrs Sex: Female : 2000 Arrival Date: 05/19/2023 Time: 23:05 Bed 15 Private MD: ED Physician Samuel Lake HPI: 05/19 23:47 This 23 yrs old Female presents to ER via Ambulatory with complaints of snw syncope. Historical: - Allergies: 23:25 No Known Allergies; jb4 - Home Meds: 23:25 None [Active]; jb4 - PMHx: 23:25 None; jb4 - PSHx: 23:25 None; jb4 - Immunization history:: Adult Immunizations unknown. - Social history:: Smoking status: Reported history of juuling and/or vaping. ROS: 23:46 Eyes: Negative for injury, pain, redness, and discharge, ENT: Negative for injury, snw pain, and discharge, Neck: Negative for injury, pain, and swelling, Cardiovascular: Negative for chest pain, palpitations, and edema, Respiratory: Negative for shortness of breath, cough, wheezing, and pleuritic chest pain, Abdomen/GI: Negative for abdominal pain, nausea, vomiting, diarrhea, and constipation, Back: Negative for injury and pain, : Negative for injury, bleeding, discharge, and swelling, MS/Extremity: Negative for injury and deformity, Skin: Negative for injury, rash, and discoloration, Psych: Negative for depression, anxiety, suicide ideation, homicidal ideation, and hallucinations, 23:46 Constitutional: Positive for malaise, 23:46 Neuro: Positive for headache, syncope, Exam: 23:46 Constitutional: This is a well developed, well nourished patient who is awake, alert, snw and in no acute distress. Head/Face: Normocephalic, atraumatic. Eyes: Pupils equal round and reactive to light, extra-ocular motions intact. Lids and lashes normal. Conjunctiva and sclera are non-icteric and not injected. Cornea within normal limits. Periorbital areas with no swelling, redness, or edema. ENT: Nares patent. No nasal discharge, no septal abnormalities noted. Tympanic membranes are normal and external auditory canals are clear. Oropharynx with no redness, swelling, or masses, exudates, or evidence of obstruction, uvula midline. Mucous membranes moist. Neck: Trachea midline, no thyromegaly or masses palpated, and no cervical lymphadenopathy. Supple, full range of motion without nuchal rigidity, or vertebral point tenderness. No Meningismus. Chest/axilla: Normal chest wall appearance and motion. Nontender with no deformity. No lesions are appreciated. Cardiovascular: Regular rate and rhythm with a normal S1 and S2. No gallops, murmurs, or rubs. Normal PMI, no JVD. No pulse deficits. Respiratory: Lungs have equal breath sounds bilaterally, clear to auscultation and percussion. No rales, rhonchi or wheezes noted. No increased work of breathing, no retractions or nasal flaring. Abdomen/GI: Soft, non-tender, with normal bowel sounds. No distension or tympany. No guarding or rebound. No evidence of tenderness throughout. Back: No spinal tenderness. No costovertebral tenderness. Full range of motion. Skin: Warm, dry with normal turgor. Normal color with no rashes, no lesions, and no evidence of cellulitis. MS/ Extremity: Pulses equal, no cyanosis. Neurovascular intact. Full, normal range of motion. Neuro: Awake and alert, GCS 15, oriented to person, place, time, and situation. Cranial nerves II-XII grossly intact. Motor strength 5/5 in all extremities. Sensory grossly intact. Cerebellar exam normal. Normal gait. Psych: Awake, alert, with orientation to person, place and time. Behavior, mood, and affect are within normal limits. Vital Signs: 23:18 BP 95 / 71; Pulse 117; Resp 16; Temp 98.3(O); Pulse Ox 99% on R/A; Weight 76 kg (M); jb4 05/20 00:20 BP 101 / 66; Pulse 95; Resp 16; Pulse Ox 99% on R/A; jb4 01:28 BP 108 / 67; Pulse 80; Resp 16; Pulse Ox 99% on R/A; jb4 Leonora Coma Score: 05/19 23:25 Eye Response: spontaneous(4). Motor Response: obeys commands(6). Verbal Response: jb4 oriented(5). Total: 15. MDM: 23:14 Patient medically screened. snw 23:46 Differential diagnosis: syncope, Intoxication, . Data reviewed: vital signs, snw nurses notes. 05/20 01:35 Differential Diagnosis: drug effect, emotional response, , seizure, vasovagal snw episode, ICH. I considered the following discharge prescriptions or medication management in the emergency department. Historians other than the Patient: Friend: Pt was sitting, having second alcoholic beverage. Got a "strange look on her face", fell sideways to the right onto her friend, vomited but then immediately came out of the position with no post-ictal state. Counseling: I had a detailed discussion with the patient and/or guardian regarding the historical points, exam findings, and any diagnostic results supporting the discharge/admit diagnosis, lab results, radiology results, the need for outpatient follow up, for definitive care, to return to the emergency department if symptoms worsen or persist or if there are any questions or concerns that arise at home. Response to treatment: the patient's symptoms have markedly improved after treatment. Special discussion: I have referred the patient to see his PCP for further evaluation of high blood pressure. Based on the history and exam findings, there is no indication for further emergent testing or inpatient evaluation. I discussed with the patient/guardian the need to see the primary care provider for further evaluation of the symptoms. ED course: CT head with no acute findings. Pt A\\T\\Ox3. will discharge to home. 05/19 23:27 Order name: CBC with Diff; Complete Time: 00:05 snw 05/19 23:27 Order name: CMP; Complete Time: 00:24 snw 05/19 23:27 Order name: ETOH Level; Complete Time: 00:39 snw 05/19 23:59 Order name: Test, Urine; Complete Time: 00:05 EDMS 05/19 23:27 Order name: CT Head Brain wo Cont snw 05/19 23:27 Order name: IV Saline Lock; Complete Time: 23:54 snw 05/19 23:27 Order name: Labs collected and sent; Complete Time: 23:54 snw Administered Medications: 00:06 Drug: NS 0.9% IV 1000 ml IV at 125 ml/hr continuous Route: IV; Rate: 125 ml/hr; Site: jb4 right forearm; 02:04 Follow up: Response: No adverse reaction; Marked relief of symptoms; IV Status: pf1 Completed infusion Disposition: 05/19 23:58 I was immediately available on-site in the Emergency Department for consultation in the ms3 care of the patient. Disposition Summary: 05/20/23 01:38 Discharge Ordered Notes: Location: Home snw Condition: Stable snw Diagnosis - Syncope Near snw - Alcohol use, unspecified snw - Other reactions to severe stress snw Followup: snw - With: Emergency Department - When: As needed - Reason: Worsening of condition Followup: snw - With: Private Physician - When: 2 - 3 days - Reason: Recheck today's complaints, Continuance of care, Re-evaluation by your physician Discharge Instructions: - Discharge Summary Sheet snw - Orthostatic Hypotension snw - Syncope snw - Stress, Adult snw - Rehydration, Adult snw - Managing Stress, Adult snw Forms: - Work release form snw - Medication Reconciliation Form snw - Thank You Letter snw - Antibiotic Education snw - Prescription Opioid Use snw - Patient Portal Instructions snw - Leadership Thank You Letter snw Prescriptions: - promethazine 25 mg Oral Tablet - take 1 tablet ORAL route every 6 hours As needed; 20 tablet; Refills: 0, snw Product Selection Permitted Signatures: Dispatcher [employer] EDMS Palak Botello, GLASS DESIGNER-C GLASS DESIGNER-Csnw Sonny Vargas, RN RN jb4 Samuel Lake DO DO ms3 Roxi Aguero RN pf1 Corrections: (The following items were deleted from the chart) 23:59 23:27 TEST, SERUM+SC.LAB.BRZ ordered. EDMS EDMS 23:59 23:56 TEST, SERUM+SC.LAB.BRZ reviewed. snw EDMS 05/20 00:26 05/19 23:56 Test, Urine+UC.LAB.BRZ ordered. EDMS EDMS
[2023-05-20 02:23] VITALS: TEMP 98.3; O2SAT 99
[2023-05-20 02:34] VITALS: BP 108/67
--- NOTE | 2023-05-22 12:26 | RAD REPORT ---
EXAM DESCRIPTION: CT - Head Brain Wo Cont - 05/20/2023 6:51 am CLINICAL HISTORY: SYNCOPE COMPARISON: None. TECHNIQUE: CT HEAD WITHOUT IV CONTRAST on 05/19/2023 11:27 PM EQUALIZING SAW OPERATOR This exam was performed according to our departmental dose-optimization program, which includes autom ated exposure control, adjustment of the mA and/or kV according to patient size and/or use of iterati ve reconstruction technique. FINDINGS: There is no acute hemorrhage, mass effect or midline shift. Simons-white differentiation is preserved. There is no hydrocephalus. There is no significant volume loss for age. The calvarium is intact. Orbits and globes are unremarkable. The paranasal sinuses are clear. Mastoid air cells are clear. IMPRESSION: No acute intracranial findings. Electronically signed by: Nick Kwok MD 05/20/2023 12:34 AM EQUALIZING SAW OPERATOR Due to temporary technical issues with the PACS/Fluency reporting system, reports are being signed by the in house radiologist without review as a courtesy to ensure prompt reporting. The interpreting r adiologist is fully responsible for the content of the report.
== END 2023-05-20 02:06 | disposition home or self-care (01) ==
LOC: ER 23:05
DX: R55 Syncope and collapse (principal); F10.90 Alcohol use, unspecified, uncomplicated; F43.89 Other reactions to severe stress; R53.81 Other malaise; R51.9 Headache, unspecified
CPT/HCPCS: 96361; 85025; 36415; 81025; 80053; 70450; 96360; 99284; 82077; J7030